=== PATIENT | female | born 1995 | race Caucasian/White ===

== ENCOUNTER 2016-12-21 23:51 | Day surgery (SDC) | payer OTHER ==
[~2016-12-21] VITALS: Ht 160 cm; Wt 78.5 kg
[2016-12-22] MEDS ORDERED: ESCI10TA PO (00:08)
[2016-12-22] MEDS ORDERED: BIRTH CONTROL (00:08)
[2016-12-22] MEDS ORDERED: AMIT10TA6 PO (00:08)
[2016-12-22] MEDS ORDERED: fentaNYL INJECTION 100 MCG/2 ML AMP IVP STA ×2 (00:10→01:42)
[2016-12-22] MEDS ORDERED: NS IV 1000 ML 1,000 ML IV ONE (00:10)
[2016-12-22 00:16] LABS: BASOPHILS % (AUTO) 0 % (0-10); EOSINOPHILS # (AUTO) 0.3 10^3/uL (0.0-0.3); EOSINOPHILS % (AUTO) 2 % (0-10); LYMPHOCYTES # (AUTO) 3.4 X 10^3 (1.0-4.0); LYMPHOCYTES % (AUTO) 23 % (12-44); MEAN CORPUSCULAR HEMOGLOBIN 29 PG (25-34); MEAN CORPUSCULAR HGB CONC 35 G/DL (32-36); MEAN CORPUSCULAR VOLUME 84 FL (80-99); MEAN PLATELET VOLUME 9.7 FL (7.4-10.4); MONOCYTES # (AUTO) 1.1 X 10^3 (0.0-1.0); MONOCYTES % (AUTO) 8 % (0-12); NEUTROPHILS # (AUTO) 10.1 X 10^3 (1.8-7.8); NEUTROPHILS % (AUTO) 68 % (42-75); PLATELET COUNT 286 10^3/uL (130-400); RED BLOOD COUNT 4.62 10^6/uL (4.35-5.85); RED CELL DISTRIBUTION WIDTH 12.7 % (10.0-14.5); WHITE BLOOD COUNT 14.9 10^3/uL (4.3-11.0)
[2016-12-22 00:29] LABS: ALANINE AMINOTRANSFERASE 33 U/L (0-55); ALBUMIN 4.1 G/DL (3.2-4.5); ANION GAP 12 MMOL/L (5-14); ASPARTATE AMINO TRANSFERASE 29 U/L (5-34); BILIRUBIN,TOTAL 0.2 MG/DL (0.1-1.0); BLOOD UREA NITROGEN 12 MG/DL (7-18); BUN/CREATININE RATIO 15; CARBON DIOXIDE 24 MMOL/L (21-32); CHLORIDE 103 MMOL/L (98-107); CREATININE SERUM 0.78 MG/DL (0.60-1.30); GFR ESTIMATED > 60; GLUCOSE 100 MG/DL (70-105); SODIUM 139 MMOL/L (135-145); TOTAL PROTEIN 7.8 G/DL (6.4-8.2)
[2016-12-22] MEDS ORDERED: IOHEXOL 350 MG/ML 100 ML (OMNIPAQUE 350) VIAL IV ONE (00:30)
[2016-12-22] MEDS ORDERED: NS 100 ML (IVPB) BAG IV ONE (00:30)
--- NOTE | 2016-12-22 00:41 | ED Abdominal Pain ---
General Chief Complaint: Abdominal/GI Problems Stated Complaint: PAIN ON LOWER RT SIDE Nursing Triage Note: RLQ ABDOMINAL PAIN WOKE PT UP APPROX. 199912/21/16 Sepsis Screen: No Definite Risk Source of Information: Patient Exam Limitations: No Limitations History of Present Illness Time Seen By Provider: 00:08 Initial Comments Here with report of right lower quadrant abdominal pain. This started about 4 hours ago and has progressively worsened. She states that it started periumbilical and now has moved to the right lower quadrant. Denies vaginal discharge or bleeding. She had menstrual period 2 weeks ago. She has not been sexually active for 9 months. Denies ever having pain like this before. Denies fevers, chills, vomiting or diarrhea. Timing/Duration: 4-6 Hours Severity/Quality: Moderate, Severe, Aching Location: RLQ Radiation: RUQ, Periumbilical Activities at Onset: None Modifying Factors: Worsens With Movement Associated Symptoms: No Back Pain, No Chest Pain, No Fever/Chills, No Shortness of Air, No Weakness Allergies and Home Medications Allergies Coded Allergies: amoxicillin (Verified Allergy, Unknown, 12/22/16) Home Medications Amitriptyline HCl 10 Mg Tablet, Unknown Dose PO, (Reported) Escitalopram Oxalate 10 Mg Tablet, Unknown Dose PO, (Reported) [ Control] , Unknown Dose, (Reported) Review of Systems Constitutional: see HPI, No chills, No fever, No weakness EENTM: No Symptoms Reported Respiratory: No Symptoms Reported Cardiovascular: No Symptoms Reported Gastrointestinal: See HPI, Abdominal Pain, Denies Diarrhea, Denies Vomiting Genitourinary: No Symptoms Reported Musculoskeletal: no symptoms reported Skin: no symptoms reported All Other Systems Reviewed Negative Unless Noted: Yes Past Dfelubb-Pnbyvs-Awgvnl Hx Patient Social History Alcohol Use: Denies Use Recreational Drug Use: No Smoking Status: Never a Smoker Recent Foreign Travel: No Contact w/Someone Who Travel: No Recent Infectious Disease Expo: No Recent Hopitalizations: No Immunizations Up To Date Tetanus Booster (TDap): Less than 5yrs PED Vaccines UTD: Yes Seasonal Allergies Seasonal Allergies: No Surgeries Surgeries: Adenoidectomy Reproductive System : No Psychosocial Behavioral Health Disorders: Anxiety, Depression Reviewed Nursing Assessment Reviewed/Agree w Nursing PMH: Yes Family Medical History Significant Family History: No Pertinent Family Hx Physical Exam Vital Signs VS - Last 72 Hours, by Label 12/22/16 12/22/16 00:08 01:13 Temp 97.4 Pulse 115 83 Resp 24 16 B/P (MAP) 114/59 134/83 Pulse Ox 96 97 O2 Delivery Room Air Room Air Capillary Refill : Less Than 3 Seconds General Appearance: WD/WN, no apparent distress HEENT: PERRL/EOMI, pharynx normal Neck: full range of motion, supple Respiratory: lungs clear, normal breath sounds Cardiovascular: no murmur, tachycardia Gastrointestinal: soft, guarding, rebound, tenderness (right lower quadrant) Extremities: non-tender, normal inspection Back: normal inspection, no CVA tenderness, no vertebral tenderness Neurologic/Psychiatric: alert, oriented x 3 Skin: normal color, warm/dry Progress/Results/Core Measures Results/Orders Lab Results Laboratory Tests Test 12/22/16 00:05 12/22/16 00:50 Range/Units White Blood Count 14.9 H 4.3-11.0 10^3/uL Red Blood Count 4.62 4.35-5.85 10^6/uL Hemoglobin 13.5 11.5-16.0 G/DL Hematocrit 39 35-52 % Mean Corpuscular Volume 84 80-99 FL Mean Corpuscular Hemoglobin 29 25-34 PG Mean Corpuscular Hemoglobin Concent 35 32-36 G/DL Red Cell Distribution Width 12.7 10.0-14.5 % Platelet Count 286 130-400 10^3/uL Mean Platelet Volume 9.7 7.4-10.4 FL Neutrophils (%) (Auto) 68 42-75 % Lymphocytes (%) (Auto) 23 12-44 % Monocytes (%) (Auto) 8 0-12 % Eosinophils (%) (Auto) 2 0-10 % Basophils (%) (Auto) 0 0-10 % Neutrophils # (Auto) 10.1 H 1.8-7.8 X 10^3 Lymphocytes # (Auto) 3.4 1.0-4.0 X 10^3 Monocytes # (Auto) 1.1 H 0.0-1.0 X 10^3 Eosinophils # (Auto) 0.3 0.0-0.3 10^3/uL Basophils # (Auto) 0.0 0.0-0.1 10^3/uL Sodium Level 139 135-145 MMOL/L Potassium Level 4.0 3.6-5.0 MMOL/L Chloride Level 103 98-107 MMOL/L Carbon Dioxide Level 24 21-32 MMOL/L Anion Gap 12 5-14 MMOL/L Blood Urea Nitrogen 12 7-18 MG/DL Creatinine 0.78 0.60-1.30 MG/DL Estimat Glomerular Filtration Rate > 60 BUN/Creatinine Ratio 15 Glucose Level 100 70-105 MG/DL Calcium Level 10.0 8.5-10.1 MG/DL Total Bilirubin 0.2 0.1-1.0 MG/DL Aspartate Amino Transf (AST/SGOT) 29 5-34 U/L Alanine Aminotransferase (ALT/SGPT) 33 0-55 U/L Alkaline Phosphatase 56 40-136 U/L Total Protein 7.8 6.4-8.2 G/DL Albumin 4.1 3.2-4.5 G/DL Serum Test, Qualitative NEGATIVE NEGATIVE Urine Color YELLOW Urine Clarity VERY CLOUDY H Urine pH 8 5-9 Urine Specific [place] 1.010 L 1.016-1.022 Urine Protein NEGATIVE NEGATIVE Urine Glucose (UA) NEGATIVE NEGATIVE Urine Ketones NEGATIVE NEGATIVE Urine Nitrite NEGATIVE NEGATIVE Urine Bilirubin NEGATIVE NEGATIVE Urine Urobilinogen NORMAL NORMAL MG/DL Urine Leukocyte Esterase 1+ H NEGATIVE Urine RBC (Auto) NEGATIVE NEGATIVE Urine RBC 2-5 H /HPF Urine WBC RARE /HPF Urine Squamous Epithelial Cells 2-5 /HPF Urine Crystals PRESENT H /LPF Urine Amorphous Sediment LARGE MYA PHOSPHATE H /LPF Urine Bacteria TRACE /HPF Urine Casts NONE /LPF Urine Mucus NEGATIVE /LPF Urine Culture Indicated NO My Orders Orders - NE FOWLER MD Fentanyl Injection (Sublimaze Injection (12/22/16 00:10) Saline Lock/Iv-Start (12/22/16 00:10) Ns Iv 1000 Ml (Sodium Chloride 0.9%) (12/22/16 00:10) Cbc With Automated Diff (12/22/16 00:10) Comprehensive Metabolic Panel (12/22/16 00:10) Hcg,Qualitative Serum (12/22/16 00:10) Ua Culture If Indicated (12/22/16 00:10) Ct Abd/Pelv W (Appendicitis) (12/22/16 00:10) Iohexol Injection (Omnipaque 350 Mg/Ml 1 (12/22/16 00:30) Ns (Ivpb) (Sodium Chloride 0.9% Ivpb Bag (12/22/16 00:30) Medications Given in ED Current Medications Medications Dose Ordered Sig/Jairon Route Start Time Stop Time Status Last Admin Dose Admin Iohexol 100 ml ONCE ONCE IV 12/22/16 00:30 12/22/16 00:31 UNV 12/22/16 00:40 100 ML Sodium Chloride 80 ml ONCE ONCE IV 12/22/16 00:30 12/22/16 00:31 UNV 12/22/16 00:40 80 ML Sodium Chloride 1,000 ml @ 0 mls/hr Q0M ONCE IV 12/22/16 00:10 12/22/16 00:11 DC 12/22/16 00:15 0 MLS/HR Vital Signs/I&O Vital Sign - Last 12Hours 12/22/16 12/22/16 00:08 01:13 Temp 97.4 Pulse 115 83 Resp 24 16 B/P (MAP) 114/59 134/83 Pulse Ox 96 97 O2 Delivery Room Air Room Air Blood Pressure Mean: 77 Progress Note : Progress Note Seen and evaluated. IV, labs and UA ordered. Serum hCG. Fentanyl 75 g IV ordered. This did help with her pain. CT abdomen and pelvis ordered as is negative. Normal saline 1 L bolus. Monitor patient. 0123: Discussed case with Dr. Shi as acute appendicitis noted. Rocephin 1 g IV. Admit, observation with likely surgery in the morning. Discussed with patient who agrees with plan. Diagnostic Imaging Diagonstic Imaging: CT Plain Films/CT/US/NM/MRI: abdomen, pelvis Comments Acute appendicitis Reviewed: Reviewed Night [facility] Study Departure Communication Time/Spoke to Admitting Phy: 01:23 Impression Impression: Primary Impression: Appendicitis Qualified Codes: K35.3 - Acute appendicitis with localized peritonitis Disposition: ADMITTED INPATIENT Condition: Stable Decision to Admit Reason: Admit from ER (General) Decision to Admit/Date: Dec 22, 2016 Time/Decision to Admit Time: 01:23 Departure-Patient Inst. Referrals: NO,LOCAL PHYSICIAN (PCP) Primary Care Physician NE FOWLER MD Dec 22, 2016 00:41
[2016-12-22 01:00] LABS: BILIRUBIN,URINE NEGATIVE (NEGATIVE); KETONES,URINE NEGATIVE (NEGATIVE); LEUKOCYTE ESTERASE ,URINE 1+ (NEGATIVE); NITRITE,URINE NEGATIVE (NEGATIVE); PH,URINE 8 (5-9); PROTEIN,URINE NEGATIVE (NEGATIVE); UROBILINOGEN,URINE NORMAL (NORMAL)
[2016-12-22 01:21] LABS: WBC,URINE RARE /HPF
[2016-12-22] MEDS ORDERED: cefTRIAXone INJECTION 1,000 MG in NS (IVPB) 50 ML IV ONE (01:30)
[2016-12-22] MEDS: NS IV 1000 ML 1,000 ML IV SCH ×2 (02:43→10:32)
[2016-12-22] MEDS: metroNIDAZOLE 500 MG/100 ML IVPB (PRE-MIX) IV SCH ×2 (02:43→10:32)
[2016-12-22 03:55] VITALS: BP 126/78
[2016-12-22] MEDS: fentaNYL INJECTION 100 MCG/2 ML AMP IV PRN ×4 (05:29→16:08)
[2016-12-22 05:34] LABS: BASOPHILS % (AUTO) 0 % (0-10); EOSINOPHILS # (AUTO) 0.1 10^3/uL (0.0-0.3); EOSINOPHILS % (AUTO) 0 % (0-10); LYMPHOCYTES # (AUTO) 1.2 X 10^3 (1.0-4.0); LYMPHOCYTES % (AUTO) 9 % (12-44); MEAN CORPUSCULAR HEMOGLOBIN 29 PG (25-34); MEAN CORPUSCULAR HGB CONC 34 G/DL (32-36); MEAN CORPUSCULAR VOLUME 85 FL (80-99); MEAN PLATELET VOLUME 9.8 FL (7.4-10.4); MONOCYTES # (AUTO) 0.9 X 10^3 (0.0-1.0); MONOCYTES % (AUTO) 7 % (0-12); NEUTROPHILS # (AUTO) 11.4 X 10^3 (1.8-7.8); NEUTROPHILS % (AUTO) 84 % (42-75); PLATELET COUNT 238 10^3/uL (130-400); RED BLOOD COUNT 4.37 10^6/uL (4.35-5.85); RED CELL DISTRIBUTION WIDTH 12.8 % (10.0-14.5); WHITE BLOOD COUNT 13.5 10^3/uL (4.3-11.0)
[2016-12-22 05:50] LABS: ALANINE AMINOTRANSFERASE 31 U/L (0-55); ALBUMIN 3.8 G/DL (3.2-4.5); ANION GAP 11 MMOL/L (5-14); ASPARTATE AMINO TRANSFERASE 25 U/L (5-34); BILIRUBIN,TOTAL 0.3 MG/DL (0.1-1.0); BLOOD UREA NITROGEN 9 MG/DL (7-18); BUN/CREATININE RATIO 13; CALCIUM 9.1 MG/DL (8.5-10.1); CARBON DIOXIDE 21 MMOL/L (21-32); CHLORIDE 107 MMOL/L (98-107); CREATININE SERUM 0.71 MG/DL (0.60-1.30); GFR ESTIMATED > 60; GLUCOSE 92 MG/DL (70-105); POTASSIUM 4.5 MMOL/L (3.6-5.0); SODIUM 139 MMOL/L (135-145)
[2016-12-22 08:00] VITALS: BP 128/66
[2016-12-22] MEDS ORDERED: DESO1TAB9 PO (08:48)
[2016-12-22] MEDS ORDERED: ESCI20TA45 PO (08:48)
--- NOTE | 2016-12-22 09:05 | Diagnostic Imaging Report ---
PROCEDURE: CT abdomen and pelvis with contrast, rule out appendicitis. TECHNIQUE: Multiple contiguous axial images were obtained through the abdomen and pelvis after the administration of intravenous contrast. INDICATION: Right lower quadrant pain. CORRELATION STUDY: None. FINDINGS: Lung bases are clear. There is diffuse low-attenuation liver suggestive of hepatic steatosis. There may be slight sparing versus potential lesion within the of the right lobe of the liver measuring approximately 4.8 x 3.4 cm. Gallbladder, spleen, pancreas, and adrenal glands unremarkable. Abdominal aorta normal in contour. Kidneys with normal enhancement. The PICC located in the right lower quadrant is enlarged at 8 mm with an appendicolith at its base. There is suggestion some subtle surrounding inflammatory changes compatible with acute appendicitis. No evidence for significant drainable abscess or perforation. There is however small amount of free fluid within the pelvis and paracolic gutter. The urinary bladder is unremarkable. Uterus is relatively unremarkable. Prominent appearance about the adnexal regions right greater than left. Prominent bilateral inguinal lymph nodes, largest on the left up to 17 x 14 mm. Osseous structures without acute findings. IMPRESSION: 1. Findings compatible with acute appendicitis. No definitive evidence for abscess or perforation at this time. There is presence of free pelvic fluid. This could be physiologic or owing to inflammatory changes. 2. Slightly prominent appearance about the right adnexa right greater than left. 3. Prominent bilateral inguinal lymph nodes, worsening enlargement in size. Dictated by: Dictated on workstation # [id number]
--- NOTE | 2016-12-22 10:10 | History & Physical-Surgical ---
History of Present Illness History of Present Illness Reason for visit/HPI HPI: Pt is a 21 yo female with complaints of right lower quadrant abdominal pain; she actually told check-in window she had appendicitis. This started about 4 hours prior to going to ER and has progressively worsened. She states that it started periumbilical and then moved to the right lower quadrant. Denies vaginal discharge or bleeding. She had menstrual period 2 weeks ago. She has not been sexually active for 9 months. Denies ever having pain like this before. Denies fevers, chills, or diarrhea. She thought it was just a gas pain and took some pepto-bismol and then felt a little nauseous and made herself vomit. Subsequently she vomited a few more times, nothing was making her feel better and that is why she went to ER. Her pain is controlled with meds now but not gone. Severity/Quality: Moderate, Severe, Aching Location: RLQ Radiation: RUQ, Periumbilical Activities at Onset: None Modifying Factors: Worsens With Movement Associated Symptoms: No Back Pain, No Chest Pain, No Fever/Chills, No Shortness of Air, No Weakness Date of Admission Dec 22, 2016 at 01:30 I consulted on this patient on 12/22/16 10:05 Attending Physician Kapil Shi DO Admitting Physician Kylee,Local Physician Consult Allergies and Home Medications Allergies Coded Allergies: amoxicillin (Verified Allergy, Unknown, 12/22/16) Home Medications Amitriptyline HCl 10 Mg Tablet, 10 MG PO HS, (Reported) Desog-E.estradiol/E.estradiol 1 Each Tablet, 1 TAB PO DAILY, (Reported) Escitalopram Oxalate 20 Mg Tablet, 20 MG PO DAILY, (Reported) Past Jiyxcet-Youjgd-Wutvqw Hx Patient Social History Alcohol Use: Denies Use Recreational Drug Use: No Smoking Status: Former Smoker Type Used: Cigarettes Recent Foreign Travel: No Contact w/Someone Who Travel: No Recent Infectious Disease Expo: No Recent Hopitalizations: No Physical Abuse Screen: No Sexual Abuse: No Immunizations Up To Date Tetanus Booster (TDap): Less than 5yrs PED Vaccines UTD: Yes Seasonal Allergies Seasonal Allergies: No Surgeries Surgeries: Adenoidectomy Respiratory Hx Respiratory Disorders: No Cardiovascular Hx Cardiac Disorders: No Neurological Hx Neurological Disorders: No Reproductive System : No Sexually Transmitted Disease: No HIV/AIDS: No Genitourinary Hx Genitourinary Disorders: No Gastrointestinal Hx Gastrointestinal Disorders: No Musculoskeletal Hx Musculoskeletal Disorders: No Endocrine Hx Endocrine Disorders: No HEENT HX ENT Disorders: No Cancer Hx Cancer: No Psychosocial Behavioral Health Disorders: Anxiety, Depression Reviewed Nursing Assessment Reviewed/Agree w Nursing PMH: Yes Family Medical History Significant Family History: CAD Under 55 Years Old (Father) Time Seen by Provider: 09:59 Constitutional: No chills, fever, No malaise EENTM: No blurred vision, No double vision, No epistaxis, No mouth pain, No mouth swelling, No throat swelling Respiratory: No cough, No dyspnea on exertion, No hemoptysis Cardiovascular: No chest pain, No edema, No palpitations Gastrointestinal: No hematemesis, No melena, nausea, vomiting Genitourinary: No decreased output, No discharge : No Musculoskeletal: No back pain, No joint pain Skin: No change in color, No change in hair/nails Psychiatric/Neurological: Anxiety, Depressed Other pt denies any chronic illnesses, no recurrent illnesses, no abnormal bleeding, no heat or cold intorlerance Physical Exam Vital Signs Vital Sign - Last 12Hours 12/22/16 00:08 Temp 97.4 Pulse 115 Resp 24 B/P (MAP) 114/59 Pulse Ox 96 O2 Delivery Room Air Capillary Refill : Less Than 3 Seconds General Appearance: WD/WN, Mild Distress Eyes: Bilateral Eye EOMI, Bilateral Eye PERRL HEENT: Pharynx Normal, No Pale Conjunctivae (L), No Pale Conjunctivae (R) Neck: Full Range of Motion, Non Tender, Supple Respiratory: Chest Non Tender, Lungs Clear, Normal Breath Sounds, No Accessory Muscle Use, No Respiratory Distress Cardiovascular: Regular Rate, Rhythm, No Edema, No Murmur Gastrointestinal: No Organomegaly, Soft, Guarding (voluntary in RLQ), Rebound Rectal: Deferred Back: No CVA Tenderness, No Vertebral Tenderness Extremity: Normal Capillary Refill, Normal Inspection, Normal Range of Motion, Non Tender, No Calf Tenderness Neurologic/Psychiatric: Oriented x3, No Motor/Sensory Deficits, Normal Mood/ Affect, area sales manager II-XII Norm as Tested Skin: Normal Color, Warm/Dry Lymphatic: No Adenopathy (neck, axilla or groin) Data Review Labs Laboratory Tests 12/22/16 00:05: White Blood Count 14.9H, Red Blood Count 4.62, Hemoglobin 13.5, Hematocrit 39, Mean Corpuscular Volume 84, Mean Corpuscular Hemoglobin 29, Mean Corpuscular Hemoglobin Concent 35, Red Cell Distribution Width 12.7, Platelet Count 286, Mean Platelet Volume 9.7, Neutrophils (%) (Auto) 68, Lymphocytes (%) (Auto) 23, Monocytes (%) (Auto) 8, Eosinophils (%) (Auto) 2, Basophils (%) (Auto) 0, Neutrophils # (Auto) 10.1H, Lymphocytes # (Auto) 3.4, Monocytes # (Auto) 1.1H, Eosinophils # (Auto) 0.3, Basophils # (Auto) 0.0, Sodium Level 139, Potassium Level 4.0, Chloride Level 103, Carbon Dioxide Level 24, Anion Gap 12, Blood Urea Nitrogen 12, Creatinine 0.78, Estimat Glomerular Filtration Rate > 60, BUN/ Creatinine Ratio 15, Glucose Level 100, Calcium Level 10.0, Total Bilirubin 0.2 , Aspartate Amino Transf (AST/SGOT) 29, Alanine Aminotransferase (ALT/SGPT) 33, Alkaline Phosphatase 56, Total Protein 7.8, Albumin 4.1, Serum Test, Qualitative NEGATIVE 12/22/16 00:50: Urine Color YELLOW, Urine Clarity VERY CLOUDYH, Urine pH 8, Urine Specific [place] 1.010L, Urine Protein NEGATIVE, Urine Glucose (UA) NEGATIVE, Urine Ketones NEGATIVE, Urine Nitrite NEGATIVE, Urine Bilirubin NEGATIVE, Urine Urobilinogen NORMAL, Urine Leukocyte Esterase 1+H, Urine RBC (Auto) NEGATIVE, Urine RBC 2-5H, Urine WBC RARE, Urine Squamous Epithelial Cells 2-5, Urine Crystals PRESENTH, Urine Amorphous Sediment LARGE MYA PHOSPHATEH, Urine Bacteria TRACE, Urine Casts NONE, Urine Mucus NEGATIVE, Urine Culture Indicated NO 12/22/16 05:05: White Blood Count 13.5H, Red Blood Count 4.37, Hemoglobin 12.7, Hematocrit 37, Mean Corpuscular Volume 85, Mean Corpuscular Hemoglobin 29, Mean Corpuscular Hemoglobin Concent 34, Red Cell Distribution Width 12.8, Platelet Count 238, Mean Platelet Volume 9.8, Neutrophils (%) (Auto) 84H, Lymphocytes (%) (Auto) 9L , Monocytes (%) (Auto) 7, Eosinophils (%) (Auto) 0, Basophils (%) (Auto) 0, Neutrophils # (Auto) 11.4H, Lymphocytes # (Auto) 1.2, Monocytes # (Auto) 0.9, Eosinophils # (Auto) 0.1, Basophils # (Auto) 0.0, Sodium Level 139, Potassium Level 4.5, Chloride Level 107, Carbon Dioxide Level 21, Anion Gap 11, Blood Urea Nitrogen 9, Creatinine 0.71, Estimat Glomerular Filtration Rate > 60, BUN/ Creatinine Ratio 13, Glucose Level 92, Calcium Level 9.1, Total Bilirubin 0.3, Aspartate Amino Transf (AST/SGOT) 25, Alanine Aminotransferase (ALT/SGPT) 31, Alkaline Phosphatase 51, Total Protein 7.0, Albumin 3.8 Assessment/Plan Assessment/Plan Assessment/Plan Acute Appendicitis ---Pt was admitted last night: NPO, IV fluids, IV ABX. CT read by radiology as acute appendicitis with appendicolith. Elevated WBC. Pt will be taken to the OR today for Laparoscopic Appendectomy, possible open. Discussed risks and complications; not limited to pain, bleeding, infection, scar, damage to bowel and need for further procedure. All questions answered to her and her parents satisfaction. Pt will probably go home today after surgery. Clinical Quality Measures DVT/VTE Risk/Contraindication: Risk Factor Score Per Nursin RFS Level Per Nursing on Admit: 1=Low/No VTE PPX KAPIL SHI DO Dec 22, 2016 10:10
[2016-12-22] MEDS ORDERED: LIDOCAINE/EPI 1%-1:100,000 (XYLOCAINE) 20ML ONE (10:28)
[2016-12-22] MEDS ORDERED: CLINDAMYCIN 600 MG/4ML (CLEOCIN) VIAL ONE (10:28)
[2016-12-22] MEDS ORDERED: NS (IVPB) 50 ML ONE (10:30)
[2016-12-22] MEDS ORDERED: LIDOCAINE PF 2% 5 ML (XYLOCAINE) VIAL ONE (10:35)
[2016-12-22] MEDS ORDERED: ROCURONIUM 50 MG/5 ML (ZEMURON) VIAL IV ONE (10:35)
[2016-12-22] MEDS ORDERED: fentaNYL INJECTION 100 MCG/2 ML AMP ONE (10:35)
[2016-12-22] MEDS: LACTATED RINGERS 1,000 ML IV PRN ×2 (10:35→11:35)
[2016-12-22] MEDS ORDERED: proPOfol 200 MG/20 ML (DIPRIVAN) VIAL IV ONE (10:35)
[2016-12-22] MEDS ORDERED: MIDAZOLAM 2 MG/2 ML (VERSED) VIAL ONE (10:35)
[2016-12-22] MEDS ORDERED: DEXAMETHASONE PF 10 MG/ML (DECADRON) VIAL ONE (10:35)
[2016-12-22] MEDS ORDERED: SEVOFLURANE (ULTANE) 15 ML INHAL SOLN ONE ×2 (10:35→11:28)
[2016-12-22] MEDS ORDERED: ONDANSETRON 4 MG/2 ML (SDV) Z0FRAN ONE (10:35)
[2016-12-22] MEDS: CLINDAMYCIN INJECTION 600 MG in NS (IVPB) 50 ML IV NR ×3 (10:48→13:42)
[2016-12-22] MEDS ORDERED: NEOSTIGMINE (BLOXIVERZ ) 1 MG/1ML 10 ML VIAL ONE (11:24)
[2016-12-22] MEDS ORDERED: GLYCOPYRROLATE 0.2 MG/ML (ROBINUL) 2 ML VIAL ONE (11:24)
[2016-12-22] MEDS ORDERED: LACTATED RINGERS 1,000 ML IV ONE (11:28)
--- NOTE | 2016-12-22 11:39 | Progress Note-Post Operative ---
Post-Operative Progess Note Surgeon (s)/Irrigation Flume Layer (s) Surgeon CHRISTIANO LUI DO Irrigation Flume Layer: none Pre-Operative Diagnosis Acute Appy Post-Operative Diagnosis same Procedure & Operative Findings Date of Procedure 12/22/16 Procedure Performed/Findings Lap Appy Anesthesia Type GET Estimated Blood Loss Estimated blood loss (mL): scant Specimens/Packing Specimens Removed CHRISTIANO Yanes DO Dec 22, 2016 11:39
[2016-12-22] MEDS ORDERED: HYDR-3812 PO (11:44)
--- NOTE | 2016-12-22 11:46 | Discharge Inst-Surgical ---
Discharge Inst-Surgical Depart Medication/Instructions New, Converted or Re-Newed RX: RX Given to Pt/Family Patient Instructions Follow up Appt: Make appointment for 1 week. Instructions: No lifting greater than 10 pounds. No strenuous activity. May shower in 24 hours, no tub bath or soaking. Use incentive spirometer at home as directed. No Smoking Skin/Wound Care: May remove band-aids in am. Dermabond will fall off on its own. Symptoms to Report: Appetite Changes, Extremity Discoloration, Numbness/Tingling, Swelling Increased , Bleeding Excessive, Eyesight Changes, Pain Increased, Urine Color Change, Constipation(Persistent), Fever over 101 degree F, Pain/Pressure in chest, Urinating Difficulty, Cough Up/Vomit Blood, Heart Beat Irreg/Pounding, Pain/ Pressure in jaw, Vaginal Bleeding Increase, Cramps in feet or legs, Lightheadedness, Pain/Pressure in shoulder, Diarrhea(Persistent), Memory Changes Suddenly, Questions/Concerns, Weight gain consecutive days, Dizziness/ Fainting, Nausea/Vomiting, Shortness of Breath, Weight gain over 2 pounds If questions or concerns contact your physician Or seek help at emergency department. Activity Activity as Tolerated: Yes Activity Instructions: Avoid Pulling & Pushing, Avoid Stress to Incision Driving Instructions: No Driving/Refer to Dr. Wong Discharge Diet: No Restrictions Diet After 24 Hours: Clear Liquid if Nauseous If Any Problems/Questions/Issu: Contact Your Physician, Go to Emergency Room Skin/Wound Care Infection Signs and Symptoms: Increased Redness, Foul Odor of Wound, Increased Drainage, Skin Itchy or Has a Rash, Increased Swelling Wound Care Comment: Heating pad to shoulder or neck tonight will help for pain in those areas Bathing Instructions: Shower Stitches/[place]/Dermabond Dis: Dermabond Ice Pack: Ice On and Off Site (as needed for pain) CHRISTIANO LUI DO Dec 22, 2016 11:46
[2016-12-22 12:00] VITALS: BP 107/71
[2016-12-22] MEDS ORDERED: MEPERIDINE (DEMEROL) INJ 50 MG/ML IVP PRN (12:00)
[2016-12-22] MEDS ORDERED: HYDROmorphone (DILAUDID) 2 MG/ML VIAL IVP PRN (12:00)
[2016-12-22] MEDS ORDERED: ONDANSETRON 4 MG/2 ML (SDV) Z0FRAN IVP PRN (12:00)
[2016-12-22] MEDS: morphine INJ 10 MG/ML 1ML (SYR OR VIAL) IVP PRN ×2 (12:30→12:35)
--- NOTE | 2016-12-22 12:40 | OPERATIVE REPORT ---
DATE OF SERVICE: 12/22/2016 PREOPERATIVE DIAGNOSIS: Acute appendicitis. POSTOPERATIVE DIAGNOSIS: Acute appendicitis. PROCEDURE: Laparoscopic appendectomy. SURGEON: Dr. Jose Guadalupe TAVARES ASSIST: None. ANESTHESIA: General endotracheal tube. SPECIMENS: Appendix. BLOOD LOSS: Scant. FLUIDS: Per anesthesia. POSTOPERATIVE CONDITION: Stable. INDICATION FOR PROCEDURE: Patient is a 21-year-old female who has pain that started in the periumbilical area and then went down into the right lower quadrant and had an elevated white count and a CAT scan read as acute appendicitis. FINDINGS: Patient had acute appendicitis. She had some fibrinous material and a thickened, erythematous appendix, had not burst and no purulent fluid in the abdomen. PROCEDURE NOTE: After informed consent was obtained, patient brought to the operating room, placed on the table in supine position. She was sterilely prepped and draped in normal fashion. Local lidocaine used to infiltrate the skin above the umbilicus. I made an incision with #11 blade, carried down through skin and subcutaneous tissue, then deepened down subcutaneous tissue with Bovie electrocautery down to fascia. Fascia incised with electrocautery. I placed 0 Vicryl [id number] suture and then bluntly entered the abdomen with a finger, placed an 11 mm trocar port under direct visualization, creating pneumoperitoneum. Then, placed 2 more ports in normal fashion using local lidocaine, 11 blade for the stab incision and the VersaStep system, all done under direct visualization; 1 suprapubically and 1 in the left lower quadrant. Patient was then placed slightly Trendelenburg and rotated to the left. Able to visualize the cecum and came down and found the appendix and then found the portion of the appendix that was inflamed; it was actually the middle portion. Pictures were taken, then able to grasp the mesoappendix and started across with the LigaSure, clamping, coagulating and transecting and then in this fashion, coming all the way across the mesoappendix and coagulating and transecting the appendiceal artery. Once the appendix was completely freed up and only attached to the cecum, then switched to a 5 mm camera. I brought the Endo MARCO in and placed it across the base of the appendix, clamped and fired, thereby transecting the appendix. Then, placed a bad in the abdomen, placed the appendix in the bag and then removed this through the supraumbilical incision. Placed the port back into the abdomen, then copiously irrigated with normal saline, suctioned this out, took a picture of the staple like, it looked good and then looked around. Did not see any obvious pathology, but did not move everything around. Took some pictures and then placed the patient back supine and then removed all ports under direct visualization, suctioned out the pneumoperitoneum, as well as allowed it to escape and then closed the supraumbilical incision, closed the fascia with 0 Vicryl suture previously placed. Copiously irrigated all incisions with normal saline. Closed the 2 small 5 mm incision with a single interrupted 4-0 undyed Monocryl subcuticular stitch. Closed the supraumbilical incision with 4 interrupted 4-0 undyed Monocryl subcuticular stitches. The area was cleaned and dried and Dermabond placed and patient then transferred to the recovery room in stable condition. Sponge, instrument and needle counts correct at the end of the case. Job ID: [id number] DocumentID: [id number] Dictated Date: 12/22/2016 11:42:59 Graduating Machine Operator Date: 12/22/2016 12:39:47 Dictated By: CHRISTIANO ULI DO
[2016-12-22 16:30] VITALS: BP 132/76
[2016-12-22 17:15] VITALS: BP 132/76
[2016-12-23] MEDS ORDERED: cefTRIAXone INJECTION 1,000 MG in NS (IVPB) 50 ML IV SCH (01:30)
== END 2016-12-22 17:30 | disposition home or self-care (01) ==
LOC: ER 23:54 → 4TH 12-22 01:30 → UNDOADMOB 12-22 01:30 → SDC 12-22 01:30 → UNDODISOB 12-22 17:30 → SDC 12-22 17:30
PROVIDERS: ATTEND Surgery
DX: K35.80 Unspecified acute appendicitis (principal); F41.9 Anxiety disorder, unspecified; F32.9 Major depressive disorder, single episode, unspecified; Z79.899 Other long term (current) drug therapy
CPT/HCPCS: 36415; 74177; 80053; 81000; 84703; 85025; 87081; 88304; 96361; 96374; 96375; 96376

== ENCOUNTER 2016-12-25 13:00 | Emergency (ER) | payer OTHER ==
[~2016-12-25] VITALS: Ht 160 cm; Wt 78.5 kg
[~2016-12-25 13:00] MED LIST: AMIT10TA6 PO; BIRTH CONTROL; DESO1TAB9 PO; ESCI10TA PO; ESCI20TA45 PO; HYDR-3812 PO
[2016-12-25] MEDS ORDERED: ONDANSETRON 4 MG (ZOFRAN) ORAL DISSOLVE TAB SL STA (13:15)
--- NOTE | 2016-12-25 13:25 | ED Abdominal Pain ---
General Chief Complaint: Abdominal/GI Problems Stated Complaint: POST OP PAIN History of Present Illness Time Seen By Provider: 13:15 Initial Comments Patient presents for abdominal pain and nausea, has not vomited. She is taking the hydrocodone approximately 1-2 every 10 hours the last 2 days. She had a laparoscopic appendectomy on 12/22/16. She reports her last bowel movement was on 12/21/16. She's been drinking Gatorade on a regular basis she has had minimal water intake, she does not eat fruit regularly and has limited appetite since surgery. She has been walking some and does report passing flatus once today. Timing/Duration: 1-2 Days Severity/Quality: Moderate, Aching, Dull Location: Generalized Abdomen Radiation: No Radiation Activities at Onset: None Associated Symptoms: Denies Symptoms, No Back Pain, No Chest Pain, No Fever/ Chills, No Fatigue, No Headache, No Heartburn, Nausea/Vomiting, No Rash, No Swelling/Mass in Abdomen, No Weakness Allergies and Home Medications Allergies Coded Allergies: amoxicillin (Verified Allergy, Unknown, 12/22/16) Home Medications Amitriptyline HCl 10 Mg Tablet, 10 MG PO HS, (Reported) Desog-E.estradiol/E.estradiol 1 Each Tablet, 1 TAB PO DAILY, (Reported) Escitalopram Oxalate 20 Mg Tablet, 20 MG PO DAILY, (Reported) Hydrocodone/Acetaminophen 1 Each Tablet, 1 TAB PO Q6H PRN, #20 Ref 0 Prescribed by: CHRISTIANO SHI on 12/22/16 1144 Review of Systems Constitutional: no symptoms reported, see HPI EENTM: No Symptoms Reported, See HPI Respiratory: No Symptoms Reported Gastrointestinal: See HPI, Abdomen Distended, Abdominal Pain, Constipated, Denies Difficulty Swallowing, Nausea, Poor Appetite, Denies Vomiting Genitourinary: No Symptoms Reported, See HPI Musculoskeletal: no symptoms reported, see HPI Skin: no symptoms reported, see HPI Psychiatric/Neurological: No Symptoms Reported, See HPI Endocrine: No Symptoms Reported, See HPI Hematologic/Lymphatic: No Symptoms Reported, See HPI All Other Systems Reviewed Negative Unless Noted: Yes Past Eojysjg-Pwbpdi-Czydem Hx Patient Social History Alcohol Use: Occasionally Uses Recreational Drug Use: No Smoking Status: Never a Smoker Type Used: Cigarettes 2nd Hand Smoke Exposure: No Recent Hopitalizations: No Immunizations Up To Date Tetanus Booster (TDap): Less than 5yrs PED Vaccines UTD: Yes Seasonal Allergies Seasonal Allergies: No Surgeries Surgeries: Adenoidectomy, Appendectomy Respiratory Hx Respiratory Disorders: No Cardiovascular Hx Cardiac Disorders: No Neurological Hx Neurological Disorders: No Reproductive System Sexually Transmitted Disease: No HIV/AIDS: No Genitourinary Hx Genitourinary Disorders: No Gastrointestinal Hx Gastrointestinal Disorders: No Musculoskeletal Hx Musculoskeletal Disorders: No Endocrine Hx Endocrine Disorders: No HEENT HX ENT Disorders: No Cancer Hx Cancer: No Psychosocial Behavioral Health Disorders: Anxiety, Depression Reviewed Nursing Assessment Reviewed/Agree w Nursing PMH: Yes Family Medical History Significant Family History: CAD Under 55 Years Old Physical Exam Vital Signs VS - Last 72 Hours, by Label 12/25/16 13:18 Temp 98.4 Pulse 100 Resp 20 B/P (MAP) 141/74 Pulse Ox 98 O2 Delivery Room Air Capillary Refill : General Appearance: WD/WN, no apparent distress HEENT: PERRL/EOMI, normal ENT inspection, TMs normal, pharynx normal, other ( oral mucosa pink and moist) Neck: non-tender, full range of motion, supple, normal inspection, No lymphadenopathy (R), No lymphadenopathy (L) Respiratory: chest non-tender, lungs clear, normal breath sounds, no respiratory distress, no accessory muscle use Cardiovascular: normal peripheral pulses, regular rate, rhythm, no edema, no murmur Gastrointestinal: normal bowel sounds, soft, no organomegaly, no pulsatile mass , distended, No guarding, No rebound, tenderness (generalized), other (Brenda- Umbilical incision sites are healing nicely, no signs of infection. No erythema , drainage or warmth.) Back: normal inspection, no CVA tenderness, no vertebral tenderness Neurologic/Psychiatric: no motor/sensory deficits, alert, normal mood/affect, oriented x 3 Skin: normal color, warm/dry Progress/Results/Core Measures Results/Orders My Orders Orders - NATHANIEL WATERS Ondansetron Oral Dissolve Tab (Zofran (12/25/16 13:15) Magnesium Hydroxide Oral Susp (Mom Oral (12/25/16 13:30) Docusate Sodium Capsule (Colace Capsule) (12/25/16 13:30) Tramadol Tablet (Ultram Tablet) (12/25/16 14:17) Promethazine Injection (Phenergan Injec (12/25/16 14:30) Medications Given in ED Current Medications Medications Dose Ordered Sig/Jairon Route Start Time Stop Time Status Last Admin Dose Admin Docusate Sodium 100 mg ONCE ONCE PO 12/25/16 13:30 12/25/16 13:31 DC 12/25/16 13:42 100 MG Magnesium Hydroxide 30 ml ONCE ONCE PO 12/25/16 13:30 12/25/16 13:31 DC 12/25/16 13:41 30 ML Promethazine HCl 25 mg ONCE ONCE IM 12/25/16 14:30 12/25/16 14:31 DC 12/25/16 14:28 25 MG Vital Signs/I&O Vital Sign - Last 12Hours 12/25/16 13:18 Temp 98.4 Pulse 100 Resp 20 B/P (MAP) 141/74 Pulse Ox 98 O2 Delivery Room Air Progress Note : Time: 13:15 Progress Note Initial evaluation completed, patient education about increase water intake in ambulation. Also discussed increasing fiber in her diet, to assist with bowel movements. At present time time there is no evidence to support a bowel obstruction, she has passed flatus today and has active bowel sounds in all 4 quadrants. We'll administer Zofran 4 mg by mouth for nausea, Colace 100 mg by mouth for stool softener and milk of magnesia 30 ml for constipation. 1410 patient reports having a large bowel movement. She is drink approximately 20 ounces of water, and is currently eating saltines. She does report continued abdominal pain and nausea. tramadol 50 mg by mouth and Phenergan 25 mg IM. 1430 patient reports she would like to be discharged home, she feels she is doing better and can manage at home. She understands that she can call the hospital hydrochloric acid operator and have Dr. Shi paged if she has worsening symptoms through the weekend, or she can return to the emergency department. Departure Impression Impression: Primary Impression: Constipation Qualified Codes: K59.03 - Drug induced constipation Additional Impression: Abdominal pain Qualified Codes: R10.84 - Generalized abdominal pain Disposition: 01 HOME, SELF-CARE Condition: Improved Departure-Patient Inst. Decision time for Depature: 14:30 Referrals: NO,LOCAL PHYSICIAN (PCP/Family) Primary Care Physician Patient Instructions: Constipation, Adult (DC) Add. Discharge Instructions: Increase water to 96 ounces per day. Increase number fruits in diet daily. [id number] Colace one tablet twice a day and left having loose stools then hold. Continue to use pain medication as prescribed by Dr. Shi. Return to emergency department for nausea, vomiting, fever, inability to pass stools or gas, or new problems. Contact Dr. Shi for additional questions or concerns. All discharge instructions reviewed with patient and/or family. Voiced understanding. Copy Copies To 1: CHRISTIANO SHI AMY ARNP Dec 25, 2016 13:25
[2016-12-25] MEDS ORDERED: MILK OF MAGNESIA 400 MG/5 ML 30 ML UDC PO ONE (13:30)
[2016-12-25] MEDS ORDERED: DOCUSATE SODIUM 100 MG (COLACE) CAP PO ONE (13:30)
[2016-12-25] MEDS ORDERED: PROMETHAZINE INJ 25 MG/ML (PHENERGAN) AMP IM ONE (14:30)
[2016-12-25 14:52] VITALS: BP 141/74
== END 2016-12-25 14:52 | disposition home or self-care (01) ==
LOC: EDUNIT# 13:00 → ER 13:03
DX: K59.00 Constipation, unspecified (principal); Z90.49 Acquired absence of other specified parts of digestive tract
CPT/HCPCS: 99282

== ENCOUNTER → 2017-02-08 | Outpatient (CLI) | payer OTHER ==
--- NOTE | 2017-02-08 10:39 | Diagnostic Imaging Report ---
PROCEDURE: US Gallbladder. TECHNIQUE: Multiple real-time grayscale images were obtained over the right upper quadrant in various projections. INDICATION: Nausea and right upper quadrant pain. COMPARISON: None. FINDINGS: The liver appears unremarkable. No focal hepatic mass is seen. There is no biliary dilatation. The common bile duct measures about 4 mm. Doppler imaging demonstrates normal hepatopetal flow in the main portal vein. The gallbladder and pancreas appear unremarkable. The right kidney measures 10.9 cm in length and appears normal. There is no ascites or sonographic Gonzalez's sign. IMPRESSION: No acute abnormalities demonstrated. Dictated by: Dictated on workstation # [id number]
== END ==
LOC: RAD 08:38
PROVIDERS: ATTEND Surgery
DX: R11.0 Nausea (principal)
CPT/HCPCS: 76705

== ENCOUNTER → 2017-02-17 | Outpatient (CLI) | payer OTHER ==
[~2017-02-17] MED LIST changes: +CATHETER FLUSH 10 ML SYR IV PRN
--- NOTE | 2017-02-17 15:14 | Diagnostic Imaging Report ---
EXAMINATION: HIDA with EF measurements Indication: Nausea TECHNIQUE: After the intravenous administration of 5.3 mCi of Tc 99m Choletec, imaging over the abdomen was obtained. This was followed by administration of Ensure orally to stimulate intrinsic CCK secretion, followed by continued imaging with ejection fraction measured. FINDINGS: There is homogeneous uptake in the liver with prompt bile duct with slight gallbladder filling seen. Bowel activity is seen at 10 minutes. Based on further imaging and gallbladder area of interest activity measurements after the administration of Ensure, the gallbladder ejection fraction is estimated at 77%. IMPRESSION: 1. Normal hepatobiliary uptake and Gallbladder filling. 2. The gallbladder ejection fraction is normal. The gallbladder however from on the contracted with only slight filling of the radiotracer. The patient also complained of mild abdominal discomfort during the exam. These findings may correlate with biliary dyskinesia despite the ejection fraction number within normal limits. Correlate clinically. Dictated by: Dictated on workstation # [id number]
== END ==
LOC: CARD 11:39
PROVIDERS: ATTEND Surgery
DX: R11.0 Nausea (principal)
CPT/HCPCS: 78227

== ENCOUNTER 2017-02-22 14:35 | Outpatient (CLI) | payer OTHER ==
[~2017-02-22] VITALS: Ht 160 cm; Wt 78.5 kg
[~2017-02-22 14:35] MED LIST changes: -CATHETER FLUSH 10 ML SYR IV PRN
== END 2017-02-22 16:04 ==
LOC: PREOP 14:35
PROVIDERS: ATTEND Surgery
DX: Z01.818 Encounter for other preprocedural examination (principal); R11.0 Nausea

== ENCOUNTER 2017-02-23 10:48 | Day surgery (SDC) | payer OTHER ==
[~2017-02-23] VITALS: Ht 160 cm; Wt 78.5 kg
[2017-02-23] MEDS ORDERED: NS IV 500 ML 500 ML ONE (10:51)
--- OUTSIDE RECORDS SUMMARY | 2017-02-23 10:54 | XMS REPORT | Clinical Summary ---
Author Author Admin, QIE Organization [facility] Address Unknown Phone Unavailable Allergies, Adverse Reactions, Alerts Allergy Name Reaction Description Start Date Severity Status Provider AMOXICILLIN Critical Active Ruddy Foy MD Conditions or Problems Problem Name Problem Code Onset Date Status Entry Date Provider Comment Standard Description Annotate NAUSEA AND VOMITING 787.01 Resolved Goldie Sahu MD Nausea with vomiting Skin rash 782.1 Active oGldie Sahu MD Rash and other nonspecific skin eruption Inguinal lymphadenopathy 785.6 Active Goldie Sahu MD Enlargement of lymph nodes Bronchitis 490 Resolved Ruddy Foy MD Bronchitis, not specified as acute or chronic Abdominal pain 789.00 Active Ruddy Foy MD Abdominal pain, unspecified site Insomnia 780.52 Active Ruddy Foy MD Insomnia, unspecified High-risk sexual behavior V69.2 Active Danay Corey APRN High-risk sexual behavior Otitis externa, left 380.10 Resolved Ruddy Foy MD Infective otitis externa, unspecified Ear pain, left 388.70 Resolved Ruddy Foy MD Otalgia, unspecified Vaginal discharge 623.5 Active Danay Corey APRN Leukorrhea, not specified as infective Gynecological examination, routine V72.3 Active Danay Corey APRN Special investigations and examinations - Gynecological examination Contraceptive prescription, oral agent V25.41 Active Danay Corey APRN Encounter for surveillance of contraceptive pill Generalized anxiety disorder 300.02 Active Ruddy Foy MD Generalized anxiety disorder Bronchitis ICD-490 Inactive Ruddy Foy MD 2014 NAUSEA AND VOMITING ICD-787.01 Inactive Goldie Sahu MD Otitis externa, left ICD-380.10 Inactive Ruddy Foy MD Ear pain, left ICD-388.70 Inactive Ruddy Foy MD Medication List Medication Instructions Start Date Stop Date Generic Name NDC Status Provider Patient Instruction ESCITALOPRAM OXALATE 20 MG ORAL TABS 1 daily ESCITALOPRAM OXALATE 45735160680 Active Ruddy Foy MD Active HYDROCODONE-ACETAMINOPHEN 5-325 MG TABS 1/2 to 1 po q 4 hours prn pain 07/14 HYDROCODONE-ACETAMINOPHEN 95652780934 No Longer Active Ruddy Foy MD Active CIPRO 500 MG TAB 1 tablet by mouth twice daily x 10 days CIPROFLOXACIN HCL 55058075256 No Longer Active Ruddy Foy MD Active AZURETTE 0.15-0.02/0.01 MG (05/12) ORAL TABS DESOGESTREL- ETHINYL ESTRADIOL 44842388464 Active Danay Yokum PHYLLIS Active CORTISPORIN 3.5-49033-4 SOLN 4gtts in affected ear QID x 7 days [id number] 75510280442 No Longer Active Danay Deliaum PHYLLIS Active ZYRTEC-D ALLERGY & CONGESTION 5-120 MG [id number]-[id number] 1 po BID PRN Allergies 07/14 CETIRIZINE-PSEUDOEPHEDRINE 96576361725 Active Danay Yomiraum HAND CROWN POUNCER Active [facility] MELATONIN CAPS take 1 tab every day MELATONIN CAPS 75169047733 No Longer Active Danay Yokum HAND CROWN POUNCER Active AMITRIPTYLINE HCL 10 MG TAB 1 tablet nightly by mouth for sleep AMITRIPTYLINE HCL 21661872328 Active CORINE Nails Active PROMETHAZINE HCL 25 MG TABS 1 four times a day as needed for nausea/vomiting PROMETHAZINE HCL 33348036437 No Longer Active Ruddy Foy MD Active NEXPLANON 68 MG SC IMPL ETONOGESTREL 98509176253 No Longer Active Ruddy Foy MD Active OMEPRAZOLE 20 MG CPDR 1 tablet by mouth daily OMEPRAZOLE 69443373613 No Longer Active Ruddy Foy MD Active GUAIFENESIN-CODEINE 100-10 MG/5ML SYRP 1 tsp PO q6h PRN cough GUAIFENESIN-CODEINE 09890049267 No Longer Active Ruddy Foy MD Active ZITHROMAX Z-CHALINO 250 MG ORAL TABS Take as directed AZITHROMYCIN 71661174265 No Longer Active Ruddy Foy MD Active ZITHROMAX Z-CHALINO 250 MG TABS 2 today, then 1 daily for 4 days 2014 AZITHROMYCIN 35556937034 No Longer Active Ruddy Foy MD Active MUPIROCIN 2 % OINT apply bid MUPIROCIN 36004454262 No Longer Active Ruddy Foy MD Active FLUCONAZOLE 100 MG TABS 1 qod FLUCONAZOLE 31044444454 No Longer Active Ruddy Foy MD Active TERCONAZOLE 0.4 % CREA apply daily for 7 days TERCONAZOLE 45123418050 No Longer Active Goldie Sahu MD Active PROMETHAZINE HCL 25 MG SUPP 1 supp q8hrs prn PROMETHAZINE HCL 86953656779 No Longer Active Goldie Sahu MD Active PROMETHAZINE HCL 25 MG SUPP 1 supp q8hrs prn PROMETHAZINE HCL 49787607988 No Longer Active Goldie Sahu MD Active AZITHROMYCIN 250 MG TABS 2 po qd x 1 day, then 1 po qd x 4 days AZITHROMYCIN 85112856469 No Longer Active Dewayne Ness DO Active PROMETHAZINE HCL 25 MG SUPP 1 supp q8hrs prn PROMETHAZINE HCL 25 MG SUPP 589488 PROMETHAZINE HCL Inactive PROMETHAZINE HCL 25 MG SUPP 1 supp q8hrs prn PROMETHAZINE HCL 25 MG SUPP 361769 PROMETHAZINE HCL Inactive FLUCONAZOLE 100 MG TABS 1 qod FLUCONAZOLE 100 MG TABS 093153 FLUCONAZOLE Inactive MUPIROCIN 2 % OINT apply bid MUPIROCIN 2 % OINT 483380 MUPIROCIN Inactive ZITHROMAX Z-CHALINO 250 MG ORAL TABS Take as directed ZITHROMAX Z-CHALINO 250 MG ORAL TABS 2077373 AZITHROMYCIN Inactive GUAIFENESIN-CODEINE 100-10 MG/5ML SYRP 1 tsp PO q6h PRN cough GUAIFENESIN-CODEINE 100-10 MG/5ML SYRP 166947 GUAIFENESIN-CODEINE Inactive OMEPRAZOLE 20 MG CPDR 1 tablet by mouth daily OMEPRAZOLE 20 MG CPDR 600438 OMEPRAZOLE Inactive NEXPLANON 68 MG SC IMPL NEXPLANON 68 MG SC IMPL ETONOGESTREL Inactive PROMETHAZINE HCL 25 MG TABS 1 four times a day as needed for nausea/vomiting PROMETHAZINE HCL 25 MG TABS 652160 PROMETHAZINE HCL Inactive [facility] MELATONIN CAPS take 1 tab every day [facility] MELATONIN CAPS MELATONIN CAPS Inactive CORTISPORIN 3.5-79321-1 SOLN 4gtts in affected ear QID x 7 days CORTISPORIN 3.5-63148-4 SOLN 811806 [id number] Inactive CIPRO 500 MG TAB 1 tablet by mouth twice daily x 10 days CIPRO 500 MG TAB 152549 CIPROFLOXACIN HCL Inactive HYDROCODONE-ACETAMINOPHEN 5-325 MG TABS 1/2 to 1 po q 4 hours prn pain 07/14 HYDROCODONE-ACETAMINOPHEN 5-325 MG TABS 733635 HYDROCODONE- ACETAMINOPHEN Inactive AZITHROMYCIN 250 MG TABS 2 po qd x 1 day, then 1 po qd x 4 days AZITHROMYCIN 250 MG TABS 7745876 AZITHROMYCIN Inactive TERCONAZOLE 0.4 % CREA apply daily for 7 days TERCONAZOLE 0.4 % CREA 784785 TERCONAZOLE Inactive ZITHROMAX Z-CHALINO 250 MG TABS 2 today, then 1 daily for 4 days 2014 ZITHROMAX Z-CHALINO 250 MG TABS 4676818 AZITHROMYCIN Inactive Advance Directives Directive Description Start Date PERMISSION TO SHARE Immunizations Vaccine Administration Date Value Standard Description hepatitis A immunization #2 Historical hepatitis A vaccine, unspecified formulation MPSV4 (meningococcal polysaccharide vaccination) Menactra meningococcal polysaccharide vaccine (MPSV4) hepatitis A immunization #1 Historical hepatitis A vaccine, unspecified formulation Human Papillomavirus vaccine (Gardasil) #3, (HPV #3) Gardasil human papilloma virus vaccine, quadrivalent Human Papillomavirus vaccine (Gardasil) #2, (HPV #2) Gardasil human papilloma virus vaccine, quadrivalent dT (Diphtheria and Tetanus) booster given Historical Td(adult) unspecified formulation DPT immunization #5 DTaP oral polio vaccine (OPV) #4 IPV poliovirus vaccine, unspecified formulation MMR (measles, mumps, rubella) virus immunization #2 MMR DPT immunization #4 DTaP Hemophilus influenza B immunization #4 Historical Haemophilus influenzae type b vaccine, conjugate unspecified formulation MMR (measles, mumps, rubella) virus immunization #1 MMR hepatitis B vaccine #3 Historical hepatitis B vaccine, unspecified formulation DPT immunization #3 DTaP Hemophilus influenza B immunization #3 Historical Haemophilus influenzae type b vaccine, conjugate unspecified formulation oral polio vaccine (OPV) #3 IPV poliovirus vaccine, unspecified formulation hepatitis B vaccine #2 given Historical hepatitis B vaccine, unspecified formulation DPT immunization #2 DTaP Hemophilus influenza B immunization #2 Historical Haemophilus influenzae type b vaccine, conjugate unspecified formulation oral polio vaccine (OPV) #2 IPV poliovirus vaccine, unspecified formulation hepatitis B vaccine #1 given Historical hepatitis B vaccine, unspecified formulation DPT immunization #1 DTaP Hemophilus influenza B immunization #1 Historical Haemophilus influenzae type b vaccine, conjugate unspecified formulation oral polio vaccine (OPV) #1 IPV poliovirus vaccine, unspecified formulation Encounters Code Encounter Date Provider Facility CPT-54328 Level 3 Est. Patient 14:20:09 [employer] Danay Corey APRN [facility] CPT-55009 Level 3 Est. Patient 16:12:52 CDT Ruddy Foy MD [facility] CPT-51577 Level 3 Est. Patient 15:54:30 [employer] Ruddy Foy MD [facility] CPT-77470 Level 3 Est. Patient 16:14:49 [employer] MARK[employer]ERK Ruddy Foy MD [facility] CPT-28523 Level 3 Est. Patient 15:10:04 CDT Goldie Sahu MD [facility] CPT-23844 Level 3 Est. Patient 09:21:02 [employer]ONEY MARK[employer] CLERK Tracie PIRES [facility] Procedures Code Procedure Name Date Entry Date Standard Description CPT-PV Prev. Care Visit 16:09:15 [employer]Y MARK[employer] CPT-67395 Abx/Therapy Injection 10:36:43 [employer]Y MARK[employer] CPT-J0696 Rocephin 1000 mg (Ceftriaxone) 09:11:00 [employer]Y MARK[employer] CPT-39747 Immunization Single Admin 10:55:06 CDT CPT-90567 Menactra 10:55:06 CDT
--- OUTSIDE RECORDS SUMMARY | 2017-02-23 10:59 | XMS REPORT | Clinical Summary ---
Author Author Admin, UBALDO Organization [email or web address] Address Unknown Phone Unavailable Allergies, Adverse Reactions, Alerts Allergy Name Reaction Description Start Date Severity Status Provider AMOXICILLIN Critical Active Ruddy Foy MD Conditions or Problems Problem Name Problem Code Onset Date Status Entry Date Provider Comment Standard Description Annotate NAUSEA AND VOMITING 787.01 Resolved Goldie Sahu MD Nausea with vomiting Skin rash 782.1 Active Goldie Sahu MD Rash and other nonspecific skin [...] Active Ruddy Foy MD Generalized anxiety disorder NAUSEA AND VOMITING ICD-787.01 Inactive Goldie Sahu MD Bronchitis ICD-490 Inactive Ruddy Foy MD 2014 Otitis externa, left ICD-380.10 Inactive Ruddy Foy MD Ear pain, left ICD-388.70 Inactive Ruddy Foy MD Medication List Medication Instructions Start Date Stop Date Generic Name NDC Status Provider Patient Instruction ESCITALOPRAM OXALATE 20 MG ORAL TABS 1 daily ESCITALOPRAM OXALATE 17848301528 Active Ruddy Foy MD Active HYDROCODONE-ACETAMINOPHEN 5-325 MG TABS 1/2 to 1 po q 4 hours prn pain 07/14 HYDROCODONE-ACETAMINOPHEN 72940210599 No Longer Active Ruddy Foy MD Active CIPRO 500 MG TAB 1 tablet by mouth twice daily x 10 days CIPROFLOXACIN HCL 12398967429 No Longer Active Ruddy Foy MD Active AZURETTE 0.15-0.02/0.01 MG (05/12) ORAL TABS DESOGESTREL- ETHINYL ESTRADIOL 16594438593 Active Danay Yomiraum PHYLLIS Active CORTISPORIN 3.5-60221-5 SOLN 4gtts in affected ear QID x 7 days VSCRLBAD-LHLXTJSTY-SP 38018068764 No Longer Active Danay Deliaum PHYLLIS Active ZYRTEC-D ALLERGY & CONGESTION 5-120 MG SV29T-PLV 1 po BID PRN Allergies 07/14 CETIRIZINE-PSEUDOEPHEDRINE 20942191420 Active Danay Deliaum PHYLLIS Active [facility] MELATONIN CAPS take 1 tab every day MELATONIN CAPS 56546164805 No Longer Active 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 AMITRIPTYLINE HCL 10 MG TAB 1 tablet nightly by mouth for sleep AMITRIPTYLINE HCL 78526766529 Active Ruddy Foy MD Active PROMETHAZINE HCL 25 MG TABS 1 four times a day as needed for nausea/vomiting PROMETHAZINE HCL 20870472833 No Longer Active Ruddy Foy MD Active NEXPLANON 68 MG SC IMPL ETONOGESTREL 09260818254 No Longer Active Ruddy Foy MD Active OMEPRAZOLE 20 MG CPDR 1 tablet by mouth daily OMEPRAZOLE 22188778102 No Longer Active Ruddy Foy MD Active GUAIFENESIN-CODEINE 100-10 MG/5ML SYRP 1 tsp PO q6h PRN cough GUAIFENESIN-CODEINE 72236609781 No Longer Active Ruddy Foy MD Active ZITHROMAX Z-CHALINO 250 MG ORAL TABS Take as directed AZITHROMYCIN 72993827119 No Longer Active Ruddy Foy MD Active ZITHROMAX Z-CHALINO 250 MG TABS 2 today, then 1 daily for 4 days 2014 AZITHROMYCIN 55439905380 No Longer Active Ruddy Foy MD Active MUPIROCIN 2 % OINT apply bid MUPIROCIN 18430026203 No Longer Active Ruddy Foy MD Active FLUCONAZOLE 100 MG TABS 1 qod FLUCONAZOLE 00286565880 No Longer Active Ruddy Foy MD Active TERCONAZOLE 0.4 % CREA apply daily for 7 days TERCONAZOLE 42063559065 No Longer Active Goldie Sahu MD Active PROMETHAZINE HCL 25 MG SUPP 1 supp q8hrs prn PROMETHAZINE HCL 50399604229 No Longer Active Goldie Sahu MD Active PROMETHAZINE HCL 25 MG SUPP 1 supp q8hrs prn PROMETHAZINE HCL 95166299196 No Longer Active Goldie Sahu MD Active AZITHROMYCIN 250 MG TABS 2 po qd x 1 day, then 1 po qd x 4 days AZITHROMYCIN 61700453485 No Longer Active Dewayne Ness DO Active PROMETHAZINE HCL 25 MG SUPP 1 supp q8hrs prn PROMETHAZINE HCL 25 MG SUPP 885511 PROMETHAZINE HCL Inactive PROMETHAZINE HCL 25 MG SUPP 1 supp q8hrs prn PROMETHAZINE HCL 25 MG SUPP 430142 PROMETHAZINE HCL Inactive FLUCONAZOLE 100 MG TABS 1 qod FLUCONAZOLE 100 MG TABS 199620 FLUCONAZOLE Inactive MUPIROCIN 2 % OINT apply bid MUPIROCIN 2 % OINT 455299 MUPIROCIN Inactive ZITHROMAX Z-CHALINO 250 MG ORAL TABS Take as directed ZITHROMAX Z-CHALINO 250 MG ORAL TABS 3756735 AZITHROMYCIN Inactive GUAIFENESIN-CODEINE 100-10 MG/5ML SYRP 1 tsp PO q6h PRN cough GUAIFENESIN-CODEINE 100-10 MG/5ML SYRP 244645 GUAIFENESIN-CODEINE Inactive OMEPRAZOLE 20 MG CPDR 1 tablet by mouth daily OMEPRAZOLE 20 MG CPDR 770635 OMEPRAZOLE Inactive NEXPLANON 68 MG SC IMPL NEXPLANON 68 MG SC IMPL ETONOGESTREL Inactive PROMETHAZINE HCL 25 MG TABS 1 four times a day as needed for nausea/vomiting PROMETHAZINE HCL 25 MG TABS 223143 PROMETHAZINE HCL Inactive [facility] MELATONIN CAPS take 1 tab every day [facility] MELATONIN CAPS MELATONIN CAPS Inactive CORTISPORIN 3.5-15065-5 SOLN 4gtts in affected ear QID x 7 days CORTISPORIN 3.5-46964-0 SOLN 602155 [id number] Inactive CIPRO 500 MG TAB 1 tablet by mouth twice daily x 10 days CIPRO 500 MG TAB 227238 CIPROFLOXACIN HCL Inactive HYDROCODONE-ACETAMINOPHEN 5-325 MG TABS 1/2 to 1 po q 4 hours prn pain 07/14 HYDROCODONE-ACETAMINOPHEN 5-325 MG TABS 015996 HYDROCODONE- ACETAMINOPHEN Inactive AZITHROMYCIN 250 MG TABS 2 po qd x 1 day, then 1 po qd x 4 days AZITHROMYCIN 250 MG TABS 0360458 AZITHROMYCIN Inactive TERCONAZOLE 0.4 % CREA apply daily for 7 days TERCONAZOLE 0.4 % CREA 226803 TERCONAZOLE Inactive ZITHROMAX Z-CHALINO 250 MG TABS 2 today, then 1 daily for 4 days 2014 ZITHROMAX Z-CHALINO 250 MG TABS 7681738 AZITHROMYCIN Inactive Advance Directives Directive Description Start [...] formulation Encounters Code Encounter Date Provider Facility CPT-89634 Level 3 Est. Patient 14:20:09 CREATIVE ART DIRECTOR Danay Corey APRN [facility] CPT-30462 Level 3 Est. Patient 16:12:52 CDT Ruddy Foy MD [facility] CPT-93636 Level 3 Est. Patient 15:54:30 CREATIVE ART DIRECTOR Ruddy Foy MD [facility] CPT-61605 Level 3 Est. Patient 16:14:49 CREATIVE ART DIRECTOR Ruddy Foy MD [facility] CPT-38299 Level 3 Est. Patient 15:10:04 CDT Goldie Sahu MD [facility] CPT-89211 Level 3 Est. Patient 09:21:02 CREATIVE ART DIRECTOR Tracie PIRES [facility] Procedures Code Procedure Name Date Entry Date Standard Description CPT-PV Prev. Care Visit 16:09:15 CREATIVE ART DIRECTOR CPT-14980 Abx/Therapy Injection 10:36:43 CREATIVE ART DIRECTOR CPT-J0696 Rocephin 1000 mg (Ceftriaxone) 09:11:00 CREATIVE ART DIRECTOR CPT-43467 Immunization Single Admin 10:55:06 CDT CPT-93202 Menactra 10:55:06 CDT
[2017-02-23] MEDS ORDERED: MIDAZOLAM 2 MG/2 ML (VERSED) VIAL IVP PRN (11:00)
[2017-02-23] MEDS ORDERED: HURRICAINE EXT TUBE (BENZOCAINE) XX PRN (11:00)
[2017-02-23] MEDS ORDERED: LIDOCAINE JELLY 2% (XYLOCAINE) 5 ML TUBE MM PRN (11:00)
[2017-02-23] MEDS ORDERED: NS IV 500 ML 500 ML IV PRN (11:00)
[2017-02-23] MEDS ORDERED: fentaNYL INJECTION 100 MCG/2 ML AMP IVP PRN (11:00)
[2017-02-23 11:15] VITALS: BP 127/77
[2017-02-23] MEDS ORDERED: HURRICAINE EXT TUBE (BENZOCAINE) XX ONE (11:30)
[2017-02-23] MEDS ORDERED: LACTATED RINGERS 1,000 ML IV SCH (11:30)
[2017-02-23] MEDS ORDERED: PROPOFOL INJECTION 50 ML IV ONE (12:07)
[2017-02-23] MEDS ORDERED: MIDAZOLAM 2 MG/2 ML (VERSED) VIAL ONE (12:07)
--- NOTE | 2017-02-23 12:55 | Progress Note-Pre Operative ---
Pre-Operative Progress Note H&P Reviewed The H&P was reviewed, patient examined and no changes noted. Time Seen by Provider: 12:50 Date H&P Reviewed: Feb 23, 2017 Time H&P Reviewed: 12:52 Pre-Operative Diagnosis: Upper abdominal pain, Nausea and Vomiting CHRISTIANO LUI DO Feb 23, 2017 12:55
[2017-02-23] MEDS ORDERED: HURRICAINE EXT TUBE (BENZOCAINE) ONE (13:15)
--- NOTE | 2017-02-23 13:15 | Progress Note-Post Operative ---
Post-Operative Progess Note Surgeon (s)/Tank Stave Assembler (s) Surgeon CHRISTIANO LUI DO Tank Stave Assembler: none Pre-Operative Diagnosis Upper abdominal pain, Nausea and Vomiting Post-Operative Diagnosis Same, possible gastritis, possible change in Z-line Procedure & Operative Findings Date of Procedure 02/23/17 Procedure Performed/Findings EGD with biopsy Anesthesia Type IV sedation by JUTE BAG CUTTING MACHINE OPERATOR Estimated Blood Loss Estimated blood loss (mL): scant Specimens/Packing Specimens Removed Antrum bx, GE jxn bx CHRISTIANO LUI DO Feb 23, 2017 13:15
--- NOTE | 2017-02-23 13:17 | Endoscopy Discharge Instruct ---
Endo Procedure/Findings Findings 1.: Gastritis 2.: Other Findings (? change at jxn) Discharge Instructions - Activity: You might feel a little sleepy until tomorrow. This is due to the medicine you received to relax you. Until tomorrow, you should: NOT drive a car, operate machinery or power tools. NOT drink any alcoholic beverages. NOT make any important decisions or sign importortant papers. Do not return to work until tomorrow, unless otherwise instructed. Resume previous activities tomorrow. Diet: Start by taking liquids. If you tolerate liquids, advance to solid food. Call for appt in one week, Instructions: 1.: Reflux Diet Notify Physician - If you experience excessive bleeding, unusual abdominal pain, fever, or chest pain, contact your doctor immediately. [phone] Follow-Up: - I have received and understand the above instructions and will call my doctor if I have any further questions. Patient Signature Date Nurse Signature Other (Relationship) CHRISTIANO LUI DO Feb 23, 2017 13:17
[2017-02-23 13:30] VITALS: BP 129/78
[2017-02-23 14:00] VITALS: BP 129/78
--- NOTE | 2017-02-24 04:22 | OPERATIVE REPORT ---
DATE OF SERVICE: PREOPERATIVE DIAGNOSIS: Upper abdominal pain with nausea and vomiting. POSTOPERATIVE DIAGNOSES: 1. Upper abdominal pain with nausea and vomiting. 2. Gastritis with questionable change in the gastroesophageal junction. PROCEDURE: Esophagogastroduodenoscopy with biopsy. SURGEON: Dr. Kapil Shi. VITAMIN MANAGER: None. ANESTHESIA: IV sedation by DINKEY DISPATCHER. SPECIMEN: 1. Biopsy from antrum. 2. Biopsy from GE junction. BLOOD LOSS: Scant. FLUIDS: Per anesthesia. POSTOPERATIVE CONDITION: Stable. INDICATION FOR PROCEDURE: The patient is a 21-year-old female who has been having nausea and vomiting, an upper abdominal pain ever since she had her appendix out. Nothing really has seemed to help this. She has tried probiotics. She has tried antiemetics. Had ultrasound and HIDA scan workup for her gallbladder. HIDA scan was negative, but she did have similar pain when gallbladder was stimulated. This was the next test to do before possibly taking out the gallbladder. FINDINGS: The patient had questionable change in the GE junction. We took a picture of this and then did a biopsy. She also had maybe a little bit of redness in the antrum and did a biopsy here. No other obvious pathology seen. PROCEDURE NOTE: After informed consent was obtained, the patient was brought to the endoscopy suite, placed in the bed in left lateral decubitus position. She was administered IV sedation and vitals were monitored the entire time by the DINKEY DISPATCHER. Inserted the scope down the mouth, down the esophagus and all the way down, noted what looked like maybe some creeping up of the GE junction. Picture was taken, pushed into the stomach, pushed all the way to the pyloric valve saw maybe a little bit of redness, pushed into the duodenum, looked pretty normal, took a picture and then removed the scope, retroflexed to look for a hiatal hernia and did not really see one. At this point, then did a biopsy of antrum and then backed up and did a biopsy right at the GE junction right where the area looked like the Z-line was creeping up. We did a biopsy here, scant bleeding, and then suctioned the air out of the stomach and then removed the scope up through the stomach, up the esophagus, and then out the mouth. The patient tolerated the procedure and she was recovered in the endoscopy room. Job ID: [id number] DocumentID: [id number] Dictated Date: 02/23/2017 13:20:44 Box Worker Date: 02/24/2017 00:51:38 Dictated By: DO BRAN COBIAN
== END 2017-02-23 14:20 | disposition home or self-care (01) ==
LOC: ENDO 10:48
PROVIDERS: ATTEND Surgery
DX: K29.70 Gastritis, unspecified, without bleeding (principal); K21.0 Gastro-esophageal reflux disease with esophagitis
CPT/HCPCS: 84703; 88305